=== PATIENT | male | born 2000 | race Caucasian/White ===

== ENCOUNTER 2021-04-09 13:27 | Emergency (ER) | payer OTHER | END 2021-04-09 14:30 | disposition home or self-care (01) | LOC: ERS 13:27 | DX: S41.051A Open bite of right shoulder, initial encounter (principal); S41.052A Open bite of left shoulder, initial encounter; Y04.1XXA Assault by human bite, initial encounter | CPT/HCPCS: 99283 ==

== ENCOUNTER 2021-04-15 13:26 | Emergency (ER) | payer OTHER ==
[2021-04-15] MEDS ORDERED: Ondansetron ODT 4 MG TAB ONE (13:55)
[2021-04-15 14:06] LABS: Bilirubin Negative (Negative); Blood, Urine Negative (Negative); Clarity Clear (Clear); Glucose, Urine (Dipstick) Normal (Negative); Ketone, Urine Negative (Negative); Leukocyte Negative Leu/uL (Negative); Nitrite Negative (Negative); Protein, Urine (Dipstick) Negative (Neg-Trace); Specific Gravity, Urine 1.002 (1.002-1.036); Urobilinogen Normal mg/dL (Less than 2); pH, Urine 7.5 (5.0-9.0)
[2021-04-15] MEDS ORDERED: cefTRIAXone\\ROCEPHIN 500 MG VIAL ONE (14:10)
[2021-04-15] MEDS ORDERED: Azithromycin 250 MG TAB ONE (14:10)
[2021-04-15] MEDS ORDERED: Lidocaine 1% PF 5 ML VIAL ONE (14:12)
== END 2021-04-15 15:18 | disposition home or self-care (01) ==
LOC: ERS 13:26
DX: K29.00 Acute gastritis without bleeding (principal); Z20.2 Contact with and (suspected) exposure to infections with a predominantly sexual mode of transmission; F17.220 Nicotine dependence, chewing tobacco, uncomplicated
CPT/HCPCS: 81003; 96372; 99284; J0696; Q0162